=== PATIENT | male | born 1950 | race Caucasian/White ===

== ENCOUNTER 2022-02-13 09:10 | Observation (INO) | payer MEDICARE, BC ==
[~2022-02-13] VITALS: Ht 182.9 cm; Wt 86.9 kg
[~2022-02-13 09:10] MED LIST: ATORVASTATIN 20 MG TAB PO SCH
[2022-02-13 10:07] LABS: BASO % 0.5 % (0.0-1.0); EOS % 0.2 % (0.0-3.0); HEMOGLOBIN 13.4 g/dl (13.5-17.5); LYMPH # 0.8 10^3/uL (1.5-5.0); LYMPH % 19.6 % (24.0-44.0); MEAN CORPUSCULAR HEMOGLOBIN 30.9 pg (27.0-33.0); MEAN CORPUSCULAR HGB CONC 33.5 g/dl (32.0-36.5); MEAN CORPUSCULAR VOLUME 92.4 fl (80.0-96.0); MONO # 0.4 10^3/uL (0.0-0.8); MONO % 9.5 % (2.0-8.0); NEUTROPHILS # 2.9 10^3/uL (1.5-8.5); PLATELET COUNT, AUTOMATED 259 10^3/uL (150-450); RED BLOOD COUNT 4.33 10^6/uL (4.30-6.10); WHITE BLOOD COUNT 4.1 10^3/uL (4.0-10.0)
[2022-02-13] MEDS ORDERED: ISOVUE-370 76% 100ML VIAL As Ordered ONE (10:07)
[2022-02-13 10:18] LABS: INR 0.87; PROTHROMBIN TIME 12.2 SECONDS (12.7-14.5)
[2022-02-13 10:19] LABS: PARTIAL THROMBOPLASTIN TIME 27.7 SECONDS (25.9-37.0)
[2022-02-13 10:47] LABS: RSV AMPLIFICATION NEGATIVE (NEGATIVE)
[2022-02-13 11:13] LABS: CK-MB VALUE MASS 3.6 NG/ML (<3.6); MB/CK RELATIVE INDEX 2.5 (< OR =4)
[2022-02-13] MEDS ORDERED: IMMU10VI SQ (11:48)
[2022-02-13] MEDS ORDERED: HOME MED LIST COMPLETE! XX SCH (11:50)
[2022-02-13] MEDS ORDERED: ASPIRIN 325 MG TAB PO ONE (12:55)
[2022-02-13 13:31] LABS: CHOLESTEROL RISK RATIO 4.359 (<5)
[2022-02-13] MEDS: ENOXAPARIN 40MG/0.4ML SYRINGE (J1650 PER 10MG) SC SCH (15:50)
[2022-02-13 18:57] VITALS: BP 166/99
[2022-02-13 22:00] VITALS: BP 139/85
[2022-02-14 02:00] VITALS: BP 140/82
[2022-02-14 06:28] VITALS: BP 156/91
[2022-02-14 07:05] LABS: HEMATOCRIT 41.1 % (42.0-52.0); HEMOGLOBIN 13.8 g/dl (13.5-17.5); MEAN CORPUSCULAR HEMOGLOBIN 30.4 pg (27.0-33.0); MEAN CORPUSCULAR HGB CONC 33.6 g/dl (32.0-36.5); MEAN CORPUSCULAR VOLUME 90.5 fl (80.0-96.0); PLATELET COUNT, AUTOMATED 263 10^3/uL (150-450); RED BLOOD COUNT 4.54 10^6/uL (4.30-6.10); WHITE BLOOD COUNT 4.1 10^3/uL (4.0-10.0)
[2022-02-14 07:21] VITALS: BP 160/90
[2022-02-14 07:29] LABS: ALBUMIN 3.6 GM/DL (3.2-5.2); ALT/SGPT 26 U/L (12-78); BILIRUBIN,TOTAL 0.7 MG/DL (0.2-1.0); BLOOD UREA NITROGEN 14 MG/DL (7-18); CALCIUM LEVEL 9.7 MG/DL (8.8-10.2); CARBON DIOXIDE LEVEL 30 MEQ/L (21-32); CHLORIDE LEVEL 108 MEQ/L (98-107); CREATININE FOR GFR 0.91 MG/DL (0.70-1.30); GLOMERULAR FILTRATION RATE > 60.0 (>42); GLUCOSE, FASTING 107 MG/DL (70-100); POTASSIUM SERUM 4.3 MEQ/L (3.5-5.1); SODIUM LEVEL 141 MEQ/L (136-145); TOTAL PROTEIN 7.2 GM/DL (6.4-8.2)
[2022-02-14] MEDS: ENOXAPARIN 40MG/0.4ML SYRINGE (J1650 PER 10MG) SC SCH (08:53)
[2022-02-14] MEDS ORDERED: ASPIRIN 81MG ENTERIC TABLET PO SCH (09:00)
[2022-02-14 10:00] VITALS: BP 166/89
[2022-02-14 14:00] VITALS: BP 156/97
[2022-02-14] MEDS ORDERED: propofoL 200 MG/20 ML VIAL As Ordered ONE (15:13)
[2022-02-14] MEDS ORDERED: fentaNYL 100 MCG/2 ML INJECTION As Ordered ONE (15:13)
[2022-02-14] MEDS ORDERED: MIDAZOLAM INJ 2MG/2ML VIAL (J2250 PER 1MG) As Ordered ONE (15:13)
[2022-02-14] MEDS ORDERED: LIDOCAINE 2% 100MG/5ML SDV (FOR ANES.) As Ordered ONE (15:13)
[2022-02-14] MEDS ORDERED: CETACAINE SPRAY 5GM As Ordered ONE (16:24)
[2022-02-14] MEDS ORDERED: LIDOCAINE VISCOUS 2% SOLN 15ML UDC As Ordered ONE (16:24)
[2022-02-14 18:00] VITALS: BP 125/74
[2022-02-14] MEDS ORDERED: ASPI-551 PO (18:23)
== END 2022-02-14 19:07 | disposition home or self-care (01) ==
LOC: M ED 09:10 → M ED INP 12:17 → ENRESERV 16:55 → M MSPAV 18:44
PROVIDERS: ADMIT Internal Medicine; ATTEND Internal Medicine
DX: H53.8 Other visual disturbances (principal); I16.0 Hypertensive urgency; D83.9 Common variable immunodeficiency, unspecified; I65.23 Occlusion and stenosis of bilateral carotid arteries; I65.02 Occlusion and stenosis of left vertebral artery; I66.21 Occlusion and stenosis of right posterior cerebral artery; Z85.038 Personal history of other malignant neoplasm of large intestine; Z90.49 Acquired absence of other specified parts of digestive tract; Z92.21 Personal history of antineoplastic chemotherapy; Z87.19 Personal history of other diseases of the digestive system; Z86.19 Personal history of other infectious and parasitic diseases; Z86.69 Personal history of other diseases of the nervous system and sense organs; Z79.899 Other long term (current) drug therapy; Z79.82 Long term (current) use of aspirin; Z87.891 Personal history of nicotine dependence
CPT/HCPCS: 36415; 70450; 70496; 70498; 70551; 71045; 80047; 80053; 80061; 82550; 82553; 84484; 85025; 85027; 85610; 85730; 87631; 93005; 93041; 93312; 93320; 93325; 94760; 96372; 99285; G0378; J1650; J2250; J3010; Q9967